=== PATIENT | male | born 1995 | race Hispanic/Latino ===

== ENCOUNTER 2018-08-13 00:43 | Emergency (ER) | payer BC ==
[2018-08-13] MEDS ORDERED: Proparacaine 0.5% Opth 15 ML BOT ONE (01:02)
[2018-08-13] MEDS ORDERED: Ketorolac Tromethamine 30 MG/ML VIAL ONE (01:19)
== END 2018-08-13 02:13 | disposition home or self-care (01) ==
LOC: ERS 00:43
DX: R51 Headache (principal); H57.89 Other specified disorders of eye and adnexa; T50.995A Adverse effect of other drugs, medicaments and biological substances, initial encounter; F17.210 Nicotine dependence, cigarettes, uncomplicated
CPT/HCPCS: 96372; J1885

== ENCOUNTER 2020-09-30 14:46 | Emergency (ER) | payer BC, SELFPAY ==
[2020-09-30] MEDS ORDERED: Ketorolac Tromethamine 30 MG/ML VIAL ONE (16:35)
== END 2020-09-30 18:30 | disposition home or self-care (01) ==
LOC: ERS 14:46
DX: S20.211A Contusion of right front wall of thorax, initial encounter (principal); W17.89XA Other fall from one level to another, initial encounter; Y99.0 Civilian activity done for income or pay; F17.210 Nicotine dependence, cigarettes, uncomplicated
CPT/HCPCS: 72072; 72100; 96372; J1885

== ENCOUNTER 2020-10-03 10:37 | Outpatient (CLI) | payer BC | END 2020-10-03 10:38 | disposition home or self-care (01) | LOC: BICRAD 10:37 | PROVIDERS: ATTEND Family Medicine | DX: R07.81 Pleurodynia (principal) ==

== ENCOUNTER 2022-09-30 14:14 | Emergency (ER) | payer BC, SELFPAY ==
[2022-09-30] MEDS ORDERED: Lidocaine 1% PF 5 ML VIAL ONE (15:09)
[2022-09-30] MEDS ORDERED: Boostrix 0.5 ML (Tdap) VIAL (>/=7 yrs of age) ONE (15:09)
== END 2022-09-30 17:00 | disposition home or self-care (01) ==
LOC: ERS 14:14
DX: S51.812A Laceration without foreign body of left forearm, initial encounter (principal); F17.210 Nicotine dependence, cigarettes, uncomplicated; Z23 Encounter for immunization; W26.9XXA Contact with unspecified sharp object(s), initial encounter
CPT/HCPCS: 12004; 90471; 90715

== ENCOUNTER 2022-10-07 17:19 | Emergency (ER) | payer SELFPAY | END 2022-10-07 17:45 | disposition home or self-care (01) | LOC: ERS 17:19 | DX: S51.012D Laceration without foreign body of left elbow, subsequent encounter (principal); F17.210 Nicotine dependence, cigarettes, uncomplicated; W18.30XD Fall on same level, unspecified, subsequent encounter ==